=== PATIENT | female | born 1955 | race Caucasian/White ===

== ENCOUNTER 2018-09-26 10:33 | Observation (INO) ==
--- NOTE | 2018-09-26 12:44 | EKG Report ---
Test Performed on : 09/26/2018 10:46:52 AM Test Reason : sob Blood Pressure : / mmHG Vent. Rate : 085 BPM Atrial Rate : 085 BPM P-R Int : 194 ms QRS Dur : 072 ms QT Int : 358 ms P-R-T Axes : 058 -50 045 degrees QTc Int : 426 ms Normal sinus rhythm. Left axis deviation Low voltage QRS Cannot rule out Anterior infarct , age undetermined Abnormal ECG When compared with ECG of 05-MAR-2017 22:27, No significant change was found Unconfirmed Result
[2018-09-26 12:56] LABS: BASO# 0.03 X1000 (0.0-0.2); BASO% 0.3 % (0.0-0.8); EOS# 0.25 X1000 (0.0-0.7); EOS% 2.9 % (0.0-10.0); HEMATOCRIT 35.9 % (37.0-47.0); HEMOGLOBIN 11.7 g/dL (12.0-16.0); IMM GRAN# 0.02 X1000 (0.0-0.04); IMM GRAN% 0.2 % (0.0-0.5); LYMPH# 2.77 X1000 (1.2-3.4); LYMPH% 31.7 % (20.5-51.1); MCH 26.9 PG (27-31); MCHC 32.6 g/dL (33-37); MCV 82.5 FL (81-99); MONO# 0.47 X1000 (0.11-0.59); MONO% 5.4 % (1.7-9.3); MPV 10.6 FL (7.4-10.4); NEUT% 59.5 % (42.2-75.2); PLT 293 X1000 (130-400); RBC 4.35 XMIL (4.2-5.4); RDW 13.9 % (11.5-14.5); WBC 8.74 X1000 (4.8-10.8)
[2018-09-26 13:10] LABS: INR 0.88; PROTIME 12.7 Seconds (11.0-16.0)
[2018-09-26 13:11] LABS: PTT 25.3 Seconds (22.3-41.8)
[2018-09-26 13:14] LABS: AGAP 12; ALB/GLOB RATIO 1.5; ALKALINE PHOSPHATASE 73 U/L (32-104); BUN 19 mg/dL (8-22); CALCIUM 9.3 mg/dL (8.8-10.2); CHLORIDE 100 mmol/L (98-107); COSMO 280; CREATININE 0.9 mg/dL (0.5-0.9); ESTIMATED GFR > 60; GLUCOSE 139 mg/dL (70-104); GOT 10 U/L (10-30); GPT 13 U/L (10-36); POTASSIUM 4.2 mmol/L (3.5-5.1); SODIUM 138 mmol/L (136-145); TCO2 26 mmol/L (25-35); TOTAL BILIRUBIN 0.33 mg/dL (0.20-1.00); TOTAL PROTEIN 6.7 g/dL (6.3-8.3)
--- NOTE | 2018-09-26 13:27 | Diag Imaging Result Doc PS360 ---
EXAM: CT HEAD W/O CONTRAST HISTORY: dizziness TECHNIQUE: CT head without contrast COMPARISON: None. FINDINGS: No parenchymal hemorrhage. No epidural or subdural hematoma. No subarachnoid hemorrhage. No mass identified on this noncontrasted exam. No hydrocephalus. No sinus opacification. IMPRESSION: No hemorrhage. Negative brain CT without contrast. This exam was performed using automated exposure control, adjustment of mA or kV according to patient size, and/or use of iterative reconstruction technique. Electronically signed by Roberto Zhao 09/26/2018 1:25 PM
[2018-09-26 14:05] LABS: ALLEN TEST YES; BE -1.5 mmoll (-3.0-3.0); BLOOD TYPE ARTERIAL; HCO3-(ACT) 23.7 mmoll (20.0-26.0); METHB 0.8 % (0.0-1.5); O2(CT) 15.5 mL/dL (15.0-23.0); O2HB 96.3 % (95.0-99.0); PCO2(98.6) 36 mmHg (35-45); PO2(98.6) 88 mmHg (60-100); SAMPLE BLOOD; SAO2 98.5 % (95.0-100.0); THB 11.4 g/dL (11.5-17.4); pH(98.6) 7.41 (7.35-7.45)
[2018-09-26 14:06] LABS: MODALITY ROOM AIR
[2018-09-26] MEDS ORDERED: ANTIVERT PO ONE (14:59)
--- NOTE | 2018-09-26 15:42 | Diag Imaging Result Doc PS360 ---
EXAM: CHEST-1 VIEW 09/26/2018 HISTORY: sob TECHNIQUE: AP portable at 1532 COMMENT: There is no evidence of acute cardiac or pulmonary disease. Compared to 10/14/2017 there has been no significant change. IMPRESSION: Stable chest. Electronically signed by Lionel Engel 09/26/2018 3:40 PM
--- NOTE | 2018-09-26 15:54 | PROVIDER DOCUMENTATION ---
This chart was entered by Sarah Wellington Scribe, acting as scribe for Andrea Rogers MD. HPI-General Adult - General Chief Complaint: Dizziness Stated Complaint: SOB Time Seen by Provider: 09/26/18 12:25 Source: patient Allergies/Adverse Reactions: Patient Allergies Allergy/AdvReac Type Severity Reaction Status Date / Time No Known Allergies Allergy Verified 08/30/17 16:11 Home Medications: Home Medication List Medication Instructions Recorded Confirmed Last Taken Type ATORVAstatin [Lipitor] 40 mg PO QHS 11/24/16 10/14/17 10/13/17 History Carvedilol 6.25 mg PO BID 03/02/17 10/14/17 10/13/17 History Citalopram [Celexa] 20 mg PO DAILY 03/02/17 10/14/17 10/13/17 History Sitagliptin Phos/Metformin HCl 1 each PO BID 03/02/17 10/14/17 10/13/17 History [Janumet 50-500 mg Tablet] Losartan/Hydrochlorothiazide 1 each PO BID 10/14/17 10/14/17 10/13/17 History [Losartan-Hctz 50-12.5 mg Tab] Oxycodone HCl/Acetaminophen 1 - 2 tab PO Q4H PRN 10/14/17 10/14/17 10/14/17 History [Oxycodone-Acetaminophen 10-325] - History of Present Illness -Gen Adult Nature of Presenting Problems: Patient is a 63 year old female who presents with shortness of breath, dizziness, weakness and blurred vision that has been present for 2 days. Patient does not report chest pain. States she has had a prior heart cath. Reports chronic left shoulder pain. Location of Pain/Injury: reports: none Pain Radiation: reports: no radiation Quality of Pain: reports: none Severity: reports: mild Onset/Duration: reports: 2 days ago Timing: reports: still present Context/Activities at Onset: reports: light activity Associated Symptoms: reports: dizziness, EENT symptoms (blurred vision), shortness of breath, weakness Similar Symptoms Previously?: Yes Recently seen or treated by another doctor?: Yes Review of Systems - Adult - REVIEW OF SYSTEMS - ADULT Constitutional: reports: no symptoms reported. denies: chills, fever, fatique Eyes: reports: see HPI, blurred vision. denies: decreased vision, double vision Ears, Nose, Mouth & Throat: reports: no symptoms reported Cardiovascular: reports: no symptoms reported Respiratory: reports: see HPI, shortness of breath. denies: cough, wheezing Gastrointestinal: reports: no symptoms reported Genitourinary: reports: no symptoms reported Musculoskeletal: reports: see HPI, muscle weakness, other (right shoulder pain). denies: back pain, neck pain Integumentary: reports: no symptoms reported Neurological: reports: see HPI, dizziness/vertigo (dizziness). denies: headache/migraines, seizure, syncope Psychiatric: reports: no symptoms reported Endocrine: reports: no symptoms reported Hematologic/Lymphatic: reports: no symptoms reported Allergic/Immunologic: reports: no symptoms reported All Other Systems: Reviewed and Negative Past History - Adult - PAST MEDICAL HISTORY-ADULT Review of Records: reports: Old Records Reviewed, Nursing Assessment Review, Medications Reviewed, Social history reviewed & non-contributory. Major Childhood Illnesses: reports: denies history Cardiovascular: reports: CAD, HTN, hyperlipidemia Respiratory: reports: asthma Gastrointestinal: reports: denies history Obstetrical/Gynecological: reports: denies history Genitourinary: reports: denies history Musculoskeletal: reports: denies history Neurological: reports: denies history Psychiatric: reports: denies history Endocrine/Immune: reports: Diabetes Other Conditions: reports: denies history - PRIOR SURGERIES/PROCEDURES Surgical/Procedure History: reports: tonsillectomy, orthopedic (extremity) - IMMUNIZATION STATUS Childhood Immunizations: See Nurse Assessment Flu Vaccine: See Nurse Assessment - FAMILY HISTORY Family History: reviewed, not pertinent - SOCIAL HISTORY Smoking: cigarettes (former) Substance Use: denies Physical Exam-General - PHYSICAL EXAM-ADULT Initial Vital Signs Reviewed: Yes - CONSTITUTIONAL General Appearance: alert, no apparent distress. negative: lethargic - HEAD, EARS, NOSE, MOUTH & THROAT HENMT: normocephalic/atraumatic, moist mucous membranes. negative: hearing de ficit - RESPIRATORY Respiratory: chest non-tender, lungs clear, normal breath sounds. negative: crackles, rhonchi - CARDIOVASCULAR Cardiovascular: normal peripheral pulses, regular rate, rhythm. negative: tachycardia, systolic murmur - GASTROINTESTINAL (ABDOMEN) Abdominal Exam: normal bowel sounds, non tender, soft. negative: rebound - MUSCULOSKELETAL Extremity: non-tender, normal inspection. negative: deformity - SKIN Integumentary: normal color, normal turgor, warm/dry. negative: cyanosis, ecc hymosis, jaundice, rash - NEUROLOGIC Neurologic: grossly normal. negative: aphasia, facial droop - PSYCHIATRIC Psych/Mental Status: normal mood/affect, oriented x 3. negative: anxious Progress - PLAN OF CARE/RESULTS Progress/Plan/Lab Results: Vital Signs - 8 hr 09/26/18 10:40 09/26/18 11:32 09/26/18 11:33 Temperature 97.5 F L Pulse Rate 88 94 H 90 Respiratory Rate 20 23 24 Blood Pressure 149/93 162/91 O2 Sat by Pulse Oximetry 99 100 09/26/18 11:40 09/26/18 11:50 09/26/18 12:00 Temperature Pulse Rate 83 85 88 Respiratory Rate 20 18 23 Blood Pressure O2 Sat by Pulse Oximetry 100 100 100 Laboratory Results - last 24 hr 09/26/18 12:26 POC Glucose 134 H Result Diagrams: 09/26/18 11:58 09/26/18 11:58 - EKG 1 Time of EKG reading by physician:: 10:46 EKG Read and Signed by:: Andrea Rogers EKG Interpretation (*Must complete 3 of following elements*): Abnormal Rate: 85 Rhythm: normal sinus rhythm [place]: left QRS: other (low voltage) SD Interval: normal Comments: cannot rule out anterior infarct, age undetermined - XRAY 1 XRAY Study: Chest Impression: See EMR Report (Signed EXAM: CHEST-1 VIEW 09/26/2018 HISTORY: sob TECHNIQUE: AP portable at 1532 COMMENT: There is no evidence of acute cardiac or pulmonary disease. Compared to 10/14/2017 there has been no significant change. IMPRESSION: Stable chest. Electronically signed by Lionel Engel 09/26/2018 3:40 PM 09/26/18 1540 Interpreting Physician: Lionel Engel MD Dictated Date/Time: 09/26/18 1540 cc: Andrea Rogers MD; Garcia Duarte MD) - CT/MRI 1 CT Study: Head Impression: See EMR Report (EXAM: CT HEAD W/O CONTRAST HISTORY: dizziness TECHNIQUE: CT head without contrast COMPARISON: None. FINDINGS: No parenchymal hemorrhage. No epidural or subdural hematoma. No subarachnoid hemor rhage. No mass identified on this noncontrasted exam. No hydrocephalus. No sinus opacification. IMPRESSION: No hemorrhage. Negative brain CT without contrast. This exam was performed using automated exposure control, adjustment of mA or kV according to patient size, and/or use of iterative reconstruction technique. Electronically signed by Roberto Zhao 09/26/2018 1:25 PM 09/26/18 1325 I nterpreting Physician: Roberto Zhao MD Dictated Date/Time: 09/26/18 1323 cc: Andrea Rogers MD; Garcia Duarte MD) - CONSULTS/PCP/HOSPITALIST Notification #1 *Consult/PCP/Hospitalist*: PATI Aguirre for Hospitalist Time Discussed: 15:47 Reason/Comments: Dr. Rogers consulted with Carla about patient Consult Disposition: Will see in ED, Admit Departure - Departure Date of Disposition Decision: 09/26/18 Time of Disposition Decision: 15:47 DIAGNOSIS: SOB (shortness of breath), Vertigo Disposition: ADMITTED INPATIENT 09 Certified Medical Emergency: Emergent Condition: Fair Referrals and Follow-Ups: Garcia Duarte MD [Primary Care Provider] - - Critical Care Note This patient required my direct & personal management of CC.: No Attestation - Physician/ ANASTACIA Attestation Patient care was provided by Advanced Practice Provider:: No The physician spent face to face time with patient:: Yes Advanced Practice Provider documentation review:: Supervising physician onsite and consulted in the evaluation and care of this patient. The physician did have a face to face encounter with the patient. This chart was documented by the indicated scribe, (Sarah Wellington Scribe) and accurately reflects the services I performed and decisions made by me, Andrea Rogers MD, as attested by the provider's signature.
[2018-09-26] MEDS ORDERED: ZOFRAN IV PRN (16:49)
[2018-09-26] MEDS ORDERED: NITROGLYCERIN SL PRN (16:49)
[2018-09-26] MEDS ORDERED: APRESOLINE IV ONE (16:58)
[2018-09-26 17:18] LABS: URINE SOURCE CLEAN CATCH
[2018-09-26 17:29] LABS: BILIRUBIN URINE NEGATIVE (NEGATIVE); BLOOD URINE NEGATIVE (NEGATIVE); COLOR YELLOW; GLUCOSE URINE NEGATIVE (NEGATIVE); KETONE URINE NEGATIVE (NEGATIVE); LEUKOCYTES URINE MODERATE (NEGATIVE); NITRITE URINE NEGATIVE (NEGATIVE); PROTEIN URINE TRACE mg/dL (NEGATIVE); SP GRAVITY URINE 1.019; TURBIDITY URINE HAZY (CLEAR); UROBILINOGEN URINE NORMAL (NORMAL)
[2018-09-26 17:36] LABS: URINE BACTERIA 2+ /HPF; URINE RBC <10 /HPF (<10); URINE WBC 20-40 /HPF (<10)
[2018-09-26] MEDS ORDERED: ASPIRIN PO STA (17:39)
[2018-09-26 17:48] LABS: URINE SMALL ROUND CELLS RENAL PRESENT; URINE YEAST PRESENT
[2018-09-26 18:33] LABS: UR EPITHELIAL CELLS <10 /HPF (<10)
[2018-09-26] MEDS: TYLENOL PO PRN (21:03)
[2018-09-26] MEDS: LIPITOR PO SCH (21:04)
[2018-09-26] MEDS: HUMALOG SUBQ SCH (21:05)
--- NOTE | 2018-09-26 22:54 | HISTORY AND PHYSICAL ---
CHIEF COMPLAINT: Chest pressure, dizziness, shortness of breath. HISTORY OF PRESENT ILLNESS: This is a 63-year-old female who presents to the emergency room complaining of 1 week of dizziness and hypertension, stating that blood pressures have been in the 160 to 210/110 to 112 range during this week. Over the last 48 to 72 hours, she developed increasing shortness of breath and chest pressure feeling like something was sitting on her chest and her shoulders along with generalized weakness, blurred vision and diaphoresis with activity. With rest symptoms would decrease. At first symptoms resolved, but over the last 24 hours, they just decreased in severity prompting her visit to the emergency room for evaluation. She does have a history of CAD. She does have a stent to her LAD. She did have similar symptoms prior to getting her stent. She states she has had a stress test since the stent was placed that was "a good test." She does states she saw a on call pharmacy technician about 4 or 5 years ago after having her [facility] although she has had no further follow up with cardiology. All follow-up was with her primary care physician Dr. Garcia Duarte. PAST MEDICAL HISTORY: 1. CAD status post LAD stent. 2. Hypertension. 3. Diabetes mellitus type 2. 4. Asthma. PRIOR SURGICAL HISTORY: Tonsillectomy, cardiac stent, carpal tunnel, right shoulder surgery and a D C. SOCIAL HISTORY: She denies alcohol, tobacco, or illicit drug use. ALLERGIES: No known drug allergies. HOME MEDICATIONS: A list will be obtained by the nursing staff and once verified, we will review and restart as appropriate. REVIEW OF SYSTEMS: Discussed with patient with pertinent positives stated in the HPI. She denies any chest pain. She denies palpitations, any syncope, a productive cough, any fevers or chills, any night sweats, No PND or orthopnea. No vomiting, diarrhea or constipation, black or bloody vomitus or stools, hematuria, dysuria, frequency, urgency. PHYSICAL EXAMINATION: GENERAL: This is a 63-year-old female who is sitting up in the stretcher in the emergency room in no distress. VITAL SIGNS: Blood pressure is 174/106, heart rate is 80, respirations are 18, temperature is 97.5 degrees with room air saturations 100%. EYES: Pupils equal, round, react to light. EOMs are intact. Sclerae are anicteric. HEENT: Head is normocephalic, atraumatic. Mucous membranes are moist. NECK: Supple with trachea midline. CARDIOVASCULAR: Regular rate and rhythm. S1 and S2 appreciated. She has no lower extremity edema. Calves are nontender bilateral with peripheral pulses palpable x4 extremities. PULMONARY: Breath sounds are clear. No increased work of breathing noted. Chest rises and falls symmetric with respiration. Chest wall is nontender to palpation. GASTROINTESTINAL: Abdomen is soft, nontender, nondistended. Bowel sounds in all 4 quadrants. GENITOURINARY: No CVA. No suprapubic tenderness. NEUROLOGIC: She is alert oriented x3. SKIN: Warm and dry. LABS: WBC is 8.7 with hemoglobin 11.7, hematocrit 35.9, and platelets of 293,000. Sodium 138, potassium 4.2, BUN 19, creatinine 0.9 with a glucose of 139. Troponin is negative. INR 0.88. CT of the head reveals negative brain CT without contrast, no hemorrhage. Chest x-ray reveals stable chest. There is no evidence of acute cardiac or pulmonary disease. EKG reveals sinus rhythm at a rate of 85. ASSESSMENT AND PLAN: 1. Chest pain/pressure. 2. Shortness of breath. 3. Dizziness. 4. History of coronary artery disease status post left anterior descending stent. 5. Hypertension. 6. Diabetes mellitus type 2. 7. Recent left rotator cuff tear. 8. Deep vein thrombosis and gastrointestinal prophylaxis. PLAN: The patient will be admitted to the medical floor at [facility]. telemetry. supplemental oxygen as needed. continue home medicines as appropriate. fingerstick blood sugar with sliding scale insulin. healthy heart diet and then NPO after midnight. echocardiogram. Repeat EKG this afternoon as well as in the morning. continue to trend cardiac enzymes and troponin. Hydralazine IV for blood pressure continue home medications once verified. We will schedule a myocardial perfusion scan for in the morning as well as an EKG. Discussed with Dr Fink. Further treatments pending hospital course Dictated by PATI Davis for Сергей Fink MD cc: PATI Davis MD I agree with most components of history, physical, assessment and plan. A separate addendum has been dictated. A face to face encounter was performed in taking care of this patient. [facility] HOSPITALMoira
[2018-09-26] MEDS: PRILOSEC PO SCH (23:49)
[2018-09-26] MEDS: HYZAAR 50/12.5 MG PO SCH (23:49)
--- NOTE | 2018-09-27 05:37 | HISTORY AND PHYSICAL ---
ADDENDUM: I agree with most components of history, physical, assessment, and plan. In brief, Ms. Oliver is a 63-year-old lady with a past medical history of coronary artery disease, status post LAD stent in 2014, sap-aautbvu-rgkgotizi diabetes mellitus, essential hypertension, who came in with chief complaints of exertional chest pressure in the center of the chest, radiating to the shoulder, associated with shortness of breath of about 1 week's duration. In the emergency room, her EKG and troponins were negative so the hospitalist team was consulted for further management. Apparently, patient had the exact same symptoms 5 years ago when she was diagnosed with coronary artery disease. SUBJECTIVE: The patient denies any cough or runny nose. She has had problems with gastric reflux for which she received 3 months of therapy, which she completed a few weeks ago. Her EGD and colonoscopy in May 2018 were negative. She does not remember the details off it. VITAL SIGNS: Currently, temperature 98.4 degrees, pulse 81, respiratory rate 18, blood pressure 115/87, saturating 100% on room air. PHYSICAL EXAMINATION: General: Obese. Not in any acute distress. Oral cavity is moist. Air entry is bilaterally equal. No wheeze, rhonchi, crackles. Cardiovascular: S1, S2 normal. No murmur, rub, or gallop. Abdomen is soft, nontender. No lower extremity edema. No hepatojugular reflex. Neurologic: She is alert and oriented x3. Sensation and motor intact. LABS: Suggestive of normocytic anemia, normal platelet count, normal coagulation, normal ABG. She does have normal kidney function. Her lactate was elevated on ABG. She denies any urinary symptoms though. MICROBIOLOGY: Urine culture is pending. IMAGING: Head CT on admission, performed because of dizziness, did not have any acute abnormalities. Chest x-ray did not have any acute abnormalities. Head CT was unremarkable. EKG suggestive of normal sinus rhythm, left axis deviation. Her initial troponin was negative. Repeat troponins are pending. ASSESSMENT: 1. Chest pain with prior history of coronary artery disease. Her chest pain does have exertional nature which gets worse on physical exertion and gets slightly better on rest. 2. Essential hypertension. 3. Zjz-zhinuml-gqlobastk diabetes mellitus. 4. Morbid obesity. PLAN: Give patient aspirin 325 mg stat. Continue high-dose statin. Continue her home antihypertensive medication. Follow up with nuclear medicine stress test tomorrow. Other differential includes gastroesophageal reflux disease. Plan of care discussed with the patient. All of her questions have been answered. cc: Сергей Fink MD
[2018-09-27 06:07] LABS: BASO# 0.02 X1000 (0.0-0.2); BASO% 0.2 % (0.0-0.8); EOS# 0.19 X1000 (0.0-0.7); HEMATOCRIT 33.5 % (37.0-47.0); HEMOGLOBIN 11.1 g/dL (12.0-16.0); LYMPH# 3.59 X1000 (1.2-3.4); LYMPH% 38.3 % (20.5-51.1); MCH 26.9 PG (27-31); MCHC 33.1 g/dL (33-37); MCV 81.3 FL (81-99); MONO# 0.44 X1000 (0.11-0.59); MONO% 4.7 % (1.7-9.3); MPV 10.4 FL (7.4-10.4); NEUT# 5.13 X1000 (1.4-6.5); NEUT% 54.8 % (42.2-75.2); PLT 270 X1000 (130-400); RBC 4.12 XMIL (4.2-5.4); RDW 13.6 % (11.5-14.5); WBC 9.37 X1000 (4.8-10.8)
[2018-09-27 06:18] LABS: CALCIUM 9.2 mg/dL (8.8-10.2); CREATININE 1.1 mg/dL (0.5-0.9); POTASSIUM 4.2 mmol/L (3.5-5.1)
[2018-09-27] MEDS: HUMALOG SUBQ SCH ×4 (07:00→21:48)
--- NOTE | 2018-09-27 07:39 | EKG Report ---
Test Performed on : 09/27/2018 07:21:25 AM Test Reason : CP Blood Pressure : / mmHG Vent. Rate : 092 BPM Atrial Rate : 092 BPM P-R Int : 194 ms QRS Dur : 068 ms QT Int : 352 ms P-R-T Axes : 062 -44 033 degrees QTc Int : 435 ms Normal sinus rhythm. Left axis deviation Low voltage QRS Abnormal ECG When compared with ECG of 26-SEP-2018 10:46, (Unconfirmed) Minimal criteria for Anterior infarct are no longer present Confirmed by Braulio Payton MD ([id number]) on 09/30/2018 11:31:48 AM
[2018-09-27] MEDS: PRILOSEC PO SCH (08:11)
[2018-09-27] MEDS ORDERED: LEXISCAN ONE (08:22)
[2018-09-27] MEDS: ASPIRIN PO SCH ×2 (09:53→10:31)
[2018-09-27] MEDS: HYZAAR 50/12.5 MG PO SCH ×2 (09:54→10:31)
[2018-09-27] MEDS: TYLENOL PO PRN (10:31)
[2018-09-27] MEDS: ULTRAM PO PRN ×2 (14:05→21:52)
--- NOTE | 2018-09-27 15:55 | ECHO REPORT ---
ORDER DATE: 09/26/2018 ECHOCARDIOGRAPHIC MEASUREMENTS: 1. Left ventricular internal diameter in diastole 4.1. 2. Aortic root 3.1. SUMMARY: 1. Technically difficult study due to limited acoustic window quality. Intravenous echo contrast agent, Optison, was utilized to enhance endocardial definition. 2. Aortic valve is trileaflet and opens normally on 2-dimensional images. Peak gradient across the aortic valve is less than 10 mmHg. Mitral and tricuspid valves are without evidence of structural abnormality. Pulmonic valve is not well demonstrated. Aortic root is normal in size. 3. Normal left ventricular dimensions suggested. Estimated left ventricular ejection fraction appears to be at least 60%. No regional wall motion abnormality is evident. Left atrium, right atrium, right ventricle are normal in size with grossly preserved right ventricular systolic function. 4. No pericardial effusion. 5. Appearance of inferior vena cava suggests normal central venous pressure. cc: MD Samara Anderson CRNP
[2018-09-27] MEDS ORDERED: PEPCID PO ONE (17:06)
--- NOTE | 2018-09-27 17:58 | PROGRESS NOTE ---
DATE: 09/27/2018 INTERVAL HISTORY: No acute events overnight. She denies any urinary symptoms. Her vitals were unremarkable. Her troponins were negative. EKG had normal sinus rhythm, atelectasis, left axis deviation. The official read of nuclear medicine myocardial perfusion scan is pending. She denies any known kidney disease. She denies any more chest pain. She is complaining of left shoulder pain and she has had rotator cuff injury there and it has been bothering her for many months. VITAL SIGNS: Temperature 98.7 degrees, pulse 92, respiratory rate 16, blood pressure 130/70, saturating 100% on room air. PHYSICAL EXAMINATION: General: Obese, not in any acute distress. HEENT: Oral cavity is moist. No pallor, cyanosis, clubbing, or icterus. Lungs: Air entry bilaterally equal. No wheeze, rhonchi, or crackles. Chest: No chest wall tenderness. There is tenderness on the left shoulder. Cardiovascular: S1, S2 normal. No murmur, rub, or gallop. Abdomen: Soft, nontender. Active bowel sounds. No hepatojugular reflux. Extremities: No lower extremity edema. LABS: Suggestive of normocytic anemia, normal platelet count. She does have a creatinine of 1.1. Her blood sugars have been within mostly acceptable range MICROBIOLOGY: No data. IMAGING: Perfusion CT scans are pending. ASSESSMENT AND PLAN: 1. Chest and diaphoresis with nausea and prior history of LAD stent in 2015 with exertional worsening of symptoms. Follow up echocardiogram, nuclear medicine stress test results. Based on that, I will consider consulting Cardiology to see if she would need coronary angiography. Medical records from [place] have been requested. Her EKG and troponins were negative. 2. Essential hypertension. Currently in acceptable range. Continue home hydrochlorothiazide and losartan. Also, continue her home aspirin and atorvastatin for history of coronary artery disease. 3. Fcv-uagvnfk-ecuytlkyc diabetes mellitus. Follow up with hemoglobin A1c and continue sliding scale insulin. 4. Morbid obesity. Patient has been working on diet and physical activity and she has had a 50 pound weight loss intentionally over last few months. I encouraged her to continue to do that. 5. Rotator cuff injury and left shoulder pain. Continue her on tramadol. 6. Disposition. Awaiting records from [place], as well as possible Cardiology evaluation. Based on that, I will consider discharging her in the next 24 hours or so. Plan of care discussed with the patient. All of her questions have been answered. cc: Сергей Fink MD
--- NOTE | 2018-09-27 19:31 | Diag Imaging Result Document ---
PROCEDURE NAME: MYOCARDIAL PERF SCAN, STR/REST - 09/27/2018 TYPE OF TEST: Lexiscan sestamibi interpretation. SUMMARY: The patient was administered 14.2 mCi of technetium-99m sestamibi, after which resting cardiac images were obtained. The patient was subsequently administered Lexiscan 0.4 mg intravenously after which the heart went from 77 beats per minute to 115 beats per minute. The blood pressure went from 123/74 to 114/67. With Lexiscan, the patient denied chest discomfort. Following the administration of Lexiscan, the patient was administered 43.3 mCi of technetium-99m sestamibi, after which gated stress cardiac images were obtained. Baseline ECG demonstrated normal sinus rhythm, left axis deviation, and delayed precordial R-wave progression. Consider possible left anterior fascicular block. With Lexiscan, there were no diagnostic ST-segment changes. SPECT images were reconstructed in the short, horizontal, vertical and long axis. Review of these images demonstrated a small area of mildly diminished activity in the inferolateral apex on stress images which improves on resting images. Gated images demonstrate a calculated left ventricular ejection fraction of 80% with symmetrical wall motion/thickening. CONCLUSIONS: 1. Adequate response to Lexiscan. 2. Clinically negative for chest pain. 3. Electrocardiographically negative for Lexiscan induced myocardial ischemia. 4. Lexiscan sestamibi images demonstrated a small area of mild reversibility in the inferolateral apex. Cannot exclude a small area of inducible ischemia in the inferolateral apex of questionable significance. Normal left upper systolic function demonstrated. Clinical correlation recommended. cc: MD Samara Anderson CRNP
--- NOTE | 2018-09-27 19:51 | PROGRESS NOTE ---
DATE: 09/27/2018 INTERVAL HISTORY: No acute events. Her chest pain has resolved. She just went to nuclear medicine stress test. However, while lying down on the stretcher, she did experience worsening of her rotator cuff pain on the left shoulder. She wanted me to give her pain medication. She denies any chest discomfort or shortness of breath. I advised her to walk in the hallway and see if her symptoms recur. VITALS: Currently, temperature 98 degrees, pulse 88, respiratory rate 16, blood pressure 134/73. She is saturating 100% on room air. PHYSICAL EXAMINATION: Morbidly obese. Not in any acute distress.Mouth: Oral cavity is moist. Lungs: Air entry bilaterally equal. No wheeze, rhonchi or crackles. Cardiovascular: S1, S2 are normal. No murmur or gallop. Abdomen: Soft, nontender. Extremities: No lower extremity edema. She does not have any chest wall tenderness. She does have shoulder joint tenderness. LABS: Suggestive of normocytic anemia, normal platelet count, normal coagulation. She does have elevation in creatinine to 1.1. Her GFR is 50. Her blood glucoses are within acceptable range. Her hemoglobin A1c is pending. Her troponins were negative. Cholesterol had LDL of 52. IMAGING: Nuclear medicine myocardial perfusion scan report is pending. Echocardiogram is suggestive of ejection fraction of 60% without any regional wall motion abnormality. She had a grossly preserved right ventricular systolic function as well. ASSESSMENT AND PLAN: 1. Exertional chest discomfort with prior history of coronary artery disease requiring stent in left anterior descending. I will continue her home high-dose atorvastatin, aspirin. Follow up with nuclear medicine myocardial perfusion scan imaging. I am also awaiting previous coronary angiography report from [place], which I have already requested. 2. Essential hypertension. Continue home hydrochlorothiazide, losartan, currently in acceptable range. 3. History of [id number] diabetes mellitus. Continue sliding scale insulin. 4. Left rotator cuff pain. I will continue her on tramadol as needed. 5. Prior history of chronic gastroesophageal reflux disease. She is status post 3 months of antacid medication. I will resume her famotidine, presuming that her dyspepsia could also mimic chest discomfort. Plan of care discussed with the patient. All of her questions have been answered. cc: Сергей Fink MD
[2018-09-27] MEDS: LIPITOR PO SCH (21:48)
[2018-09-28] MEDS: ULTRAM PO PRN ×3 (04:52→17:20)
[2018-09-28] MEDS: PRILOSEC PO SCH (06:35)
[2018-09-28] MEDS: HUMALOG SUBQ SCH ×4 (06:53→21:53)
[2018-09-28 07:38] LABS: BASO# 0.02 X1000 (0.0-0.2); BASO% 0.2 % (0.0-0.8); EOS# 0.14 X1000 (0.0-0.7); EOS% 1.6 % (0.0-10.0); HEMATOCRIT 35.1 % (37.0-47.0); HEMOGLOBIN 11.5 g/dL (12.0-16.0); LYMPH# 2.83 X1000 (1.2-3.4); LYMPH% 31.9 % (20.5-51.1); MCH 26.9 PG (27-31); MCHC 32.8 g/dL (33-37); MCV 82.2 FL (81-99); MONO# 0.41 X1000 (0.11-0.59); MONO% 4.6 % (1.7-9.3); MPV 10.6 FL (7.4-10.4); NEUT# 5.46 X1000 (1.4-6.5); NEUT% 61.7 % (42.2-75.2); PLT 264 X1000 (130-400); RBC 4.27 XMIL (4.2-5.4); RDW 13.8 % (11.5-14.5); WBC 8.86 X1000 (4.8-10.8)
[2018-09-28 07:58] LABS: CALCIUM 9.2 mg/dL (8.8-10.2); CREATININE 1.1 mg/dL (0.5-0.9); MAGNESIUM 1.8 mg/dL (1.5-2.7); POTASSIUM 4.4 mmol/L (3.5-5.1)
[2018-09-28] MEDS: ASPIRIN PO SCH (08:31)
[2018-09-28] MEDS: PEPCID PO SCH (08:31)
[2018-09-28] MEDS: HYZAAR 50/12.5 MG PO SCH (08:31)
[2018-09-28] MEDS ORDERED: ANTIVERT PO PRN (11:35)
[2018-09-28] MEDS ORDERED: HEPARIN 1000 UNITS/NS 2,000 UNIT/1,000 ML IV.SOLN ONE (12:56)
[2018-09-28] MEDS ORDERED: NITROGLYCERIN ONE (12:56)
--- NOTE | 2018-09-28 13:14 | CARDIOLOGY CONSULTATION ---
DATE: 09/27/2018 REASON FOR CONSULTATION: Ms. Chastity Oliver comes in with complaints of chest pain shortness of breath. Had a stress test today. HISTORY OF PRESENT ILLNESS: This is a 63-year-old lady who had a stent placement to the left anterior descending artery. Has hypertension and diabetes. Came to the emergency room with increasing episodes of shortness of breath and dizziness for the last 1 week. In addition, she said that she felt a pressure-like sensation as if someone sitting on her chest and upper shoulders, and she has also noticed that when she tries to exert at home in the last few weeks, she has had a heaviness on her shoulders. Today she underwent a stress test which revealed questionable low-grade ischemia in the left ventricular apex; however she just took a shower, and she said that she felt washed out and had some diaphoresis associated with heaviness around her shoulders and neck. She has had shoulder surgery in the past. Her blood pressure was elevated at 160 to 210 over the last week, systolic. Diastolic ranged from 100 to 112. REVIEW OF SYSTEM: A 14-point review of systems done.GI: There is no history of nausea, vomiting, diarrhea. There is no history of hematemesis or melena. Central nervous system: No focal weakness to suggest a CVA or TIA. Genitourinary: There is no dysuria or hematuria. PAST MEDICAL HISTORY: Hypertension, diabetes, asthma, coronary artery disease status post stent placement to the left anterior descending artery. Had a 95% stenosis. This was on 09/13/2014, treated with a drug-eluting stent. Her other past medical history includes tonsillectomy, carpal tunnel, right shoulder surgery. HOME MEDICATIONS: Include Janumet 1 tablet twice a day, atorvastatin 40, dulaglutide, losartan/hydrochlorothiazide 50/12.5. PHYSICAL EXAMINATION: Vital Signs: Blood pressure was 122/70. Neck: Normal jugular venous pressure. There is no thyromegaly. No carotid bruit. Cardiovascular: First and second heart sounds were heard. There is no S3, S4, or gallop. Respiratory: Normal air entry. There is no crepitations or rhonchi. Abdomen: Soft, nontender. There is no guarding or rigidity. Bowel sounds heard. Central nervous system: Alert, and was moving all 4 extremities. Extremities: Revealed no pedal edema. HEENT: Atraumatic, normocephalic. Pupils were equal and reacting to light. ASSESSMENT AND PLAN: Ms. Chastiyt Oliver is a 63-year-old lady with history of hypertension, diabetes, coronary artery disease, stent placement to the left anterior descending artery. She comes in with: 1. Complaints of having elevated blood pressure associated with this chest heaviness which she describes as is someone was sitting on her upper chest with heaviness on both shoulders. She has been having these intermittent episodes for the last 1 week. She was ruled out for myocardial infarction. Cardiolite stress test revealed a low-grade ischemia; however her symptoms are very concerning for unstable angina. Given this, I have recommended that she undergo a left heart catheterization. Risks, benefits, and alternatives were explained. Patient will be set up for left heart catheterization. 2. Hypertension. Recently elevated blood pressure is currently under control. I have not made any changes. 3. Hyperlipidemia. Continue with Lipitor. 4. Diabetes. She is on multiple medications. I have not made any changes. 5. She does not smoke. Does not drink. Thank you for the consult. We will follow hospital course. cc: Michael Fuentes MD
[2018-09-28] MEDS ORDERED: VERSED ONE (13:42)
[2018-09-28] MEDS ORDERED: CLAVE PUMP SET NO FILTER 12260 ONE (13:43)
[2018-09-28] MEDS ORDERED: CLAVE TWINSITE 32 IN 11959 ONE (13:43)
[2018-09-28] MEDS ORDERED: NS 1,000 ML ONE (13:43)
[2018-09-28] MEDS ORDERED: DILAUDID ONE (13:43)
--- NOTE | 2018-09-28 14:56 | CARDIAC CATH REPORT ---
DATE: 09/28/2018 INDICATION: Unstable angina and history of coronary artery disease. PROCEDURES PERFORMED: 1. Left heart catheterization. 2. Selective coronary angiography. PROCEDURE IN DETAIL: Ms. Oliver was brought to the catheterization laboratory in a fasting state. Informed consent was obtained. Prepped in usual fashion. She was anesthetized over the right radial artery after Moris's test proved adequate. A 5-Maori sheath was placed via true Seldinger technique. A radial cocktail was administered, catheters were introduced, and hemodynamic measurements made in the ascending thoracic aorta. Coronary angiography was performed in multiple views using JL3.5 and JR4 diagnostic catheters. Left heart catheterization was performed using the JR4. At the conclusion of the procedure all sheaths and catheters were removed. TR band was left inflated at 11 mL of air. Good capillary refill. Good hemostasis. IV CONTRAST: 50 mL. ESTIMATED BLOOD LOSS: 5-10 mL. FINDINGS: 1. The left main originates from the left coronary cusp and appears normal. 2. The left anterior descending originates from the left main. There is mild in-stent stenosis in the proximal stent with minimal luminal irregularities in the mid and distal vessel. There is a jailed second diagonal that is relatively small and appears to have some ostial disease at around 60%. 3. The circumflex originates from the left main. Proximally the vessel appears normal. The mid vessel has minimal luminal irregularities with normal distal vessel. 4. The right coronary originates from the right coronary cusp. It is a dominant vessel. Minor luminal irregularities are noted diffusely. 5. Aortic blood pressure is 100/62. Left ventricular pressure is 100/2 with an LVEDP of zero. ASSESSMENT: Ms. Oliver is a 63-year-old female with a history of percutaneous coronary intervention previously who presented with symptoms consistent with unstable angina. PLAN: She does not appear to have any severe flow-limiting disease. Her proximal LAD stent is patent with minimal in-stent stenosis. She does have a jailed second diagonal but at this time I would recommend treating this with medical therapy. She will return to the floor for the usual postprocedure convalescence. cc: Alcides Delgado MD
[2018-09-28 15:37] LABS: HEMOGLOBIN A1C 6.3 % (4.8-6.0)
[2018-09-28] MEDS: LIPITOR PO SCH (21:54)
[2018-09-29] MEDS: ULTRAM PO PRN (00:22)
[2018-09-29] MEDS: HUMALOG SUBQ SCH (06:23)
[2018-09-29] MEDS: PRILOSEC PO SCH (06:27)
--- NOTE | 2018-09-29 08:59 | PROGRESS NOTE ---
DATE: 09/28/2018 INTERVAL HISTORY: I am seeing patient late during the day after she had coronary angiography done. The patient was transferred to [facility]. She did not have any other acute events. She is denying any chest pain. Her shoulder pain is better after ice application. She is complaining of dizziness she says today morning when she was taking a shower. After she completed her shower, she started feeling diaphoretic and she was feeling extremely dizzy to an extent that she had to sit down otherwise she would have fallen down. I had ordered some meclizine after which she has been feeling better. She currently denies any chest pain or shortness of breath. VITAL SIGNS: Temperature 97.4 degrees, pulse 76, respiratory rate 16, blood pressure 130/78, saturating 100% on room air. PHYSICAL EXAMINATION: Obese, not in any acute distress. Oral cavity is moist. Air entry bilaterally equal. No wheeze, rhonchi, or crackles. S1, S2 normal. No murmur, rub, or gallop. She does have tenderness over left shoulder because of her rotator cuff injury. LABS: Essentially unremarkable. Her creatinine is stable at 1.1. Her hemoglobin A1c is 6.3. I have not received any documents from [facility] yet. ASSESSMENT AND PLAN: 1. Exertional chest discomfort with prior history of coronary artery disease requiring stent in left anterior descending artery around year 2014. Cardiology was consulted today and patient underwent coronary angiography for reversible ischemia on myocardial perfusion scan test. Coronary angiography suggests she does have close to a 60% stenosis of 1 of the smaller branches of LAD. Otherwise, no other significant coronary artery stenosis and she is just recommended medical management. I will continue her on high-dose atorvastatin, aspirin, losartan and hydrochlorothiazide. She is not listed to be taking any beta mary. 2. Essential hypertension. Continue home hydrochlorothiazide, losartan, currently in acceptable range. 3. History of noninsulin-dependent diabetes mellitus. Continue sliding scale insulin and her home oral hypoglycemic agent at the time of discharge. Continue tramadol for left rotator cuff pain. Start patient on famotidine for her GERD history for which she completed 3 months of antacid course prior to this hospitalization. 4. Dizziness. It is of unclear etiology. I will get orthostatic vitals tomorrow morning. On admission her CT scan head was unremarkable and I will continue her meclizine as needed. DISPOSITION: In the morning time if the patient is able to ambulate in the hallway without any discomfort or dizziness, plan is to discharge her home. Plan of care discussed with the patient. All of her questions have been answered. cc: Сергей Fink MD
[2018-09-29 09:22] VITALS: BP 121/65
[2018-09-29] MEDS: PEPCID PO SCH (09:27)
[2018-09-29] MEDS: ASPIRIN PO SCH (09:27)
[2018-09-29] MEDS: HYZAAR 50/12.5 MG PO SCH (09:27)
--- NOTE | 2018-09-30 10:20 | DISCHARGE SUMMARY ---
ADMISSION DATE: 09/26/2018 DISCHARGE DATE: 09/29/2018 CONSULTATIONS: Dr. Fuentes of Cardiology. PERTINENT PROCEDURES: 1. Head CT negative. 2. Echocardiogram 60% with no wall motion abnormality. 3. Perfusion scan was negative for ischemia. There was a small area of mild reversibility in the inferolateral apex. Cannot exclude a small area of inducible ischemia in the inferolateral apex of questionable significance. 4. Left heart catheterization did not appear to have any severe flow-limiting disease. Proximal LAD stent is patent with minimal in-stent stenosis. There is a jailed second diagonal. The recommendation is to continue with medical therapy. ASSESSMENT AND PLAN: 1. Exertional chest discomfort with history of coronary artery disease, requiring stent to the left anterior descending in 2014. The patient underwent an echocardiogram, negative Lexiscan with probable inducible small area of ischemia that was followed up with a heart catheterization. There was no significant coronary artery stenosis. Recommended further medical management, high-dose statin, aspirin, losartan, and hydrochlorothiazide. 2. Essential hypertension. Continue home medications. 3. Noninsulin-dependent diabetes mellitus. Continue home regimen, diabetic diet. 4. Dizziness of unclear etiology. She was initiated on meclizine as needed. HOSPITAL COURSE: Briefly, Ms. Oliver is a 63-year-old female with a past medical history of coronary artery disease, status post LAD stent in 2014, noninsulin- dependent diabetes mellitus, essential hypertension, who came to the ED with exertional chest pressure in the center of the chest, radiating to the shoulder, associated with shortness of breath of 1-week duration. In the ED, EKG and troponins were negative. These were similar to her symptoms 5 years ago when she received a stent. She was admitted to the Hospitalist Service, consulted Cardiology, underwent an echocardiogram and a normal stress test, but could not rule out a small area of reproducible ischemia, so she underwent a left heart catheterization that did not show any significant stenosis, and recommended continue medical management. She has been chest pain-free, and will be discharged home today. VITAL SIGNS: At the time of discharge, temperature is 98.1 degrees, heart rate 88, respirations 18, blood pressure 137/68, O2 is 99% on room air. Orthostatics: Heart rate 93, blood pressure 119/69 standing; supine 100 and 101/62; supine heart rate was 94, blood pressure was 121/65. DISCHARGE DIET: Diabetic. DISCHARGE MEDICATIONS: 1. Lipitor 40 mg p.o. at bedtime. 2. Janumet 50/500 mg tablet 2 each p.o. b.i.d. 3. Losartan/hydrochlorothiazide 50/12.5 mg 2 each p.o. b.i.d. 4. Trulicity 1.5 mg subcutaneously as directed. 5. Antivert 25 mg p.o. t.i.d. p.r.n. 6. Prilosec 40 mg p.o. daily. FOLLOWUP: Ms. Oliver is being discharged back home with self-care. She is to follow up with her primary real estate operations manager, Dr. Mora, in 1 month, as well as her primary care provider in 2 to 3 weeks, Dr. Garcia Duarte. She is to take all medications as prescribed. She can return to the ED or call 911 for any worsening of symptoms. Dictated by PATI Curtis for Christiano Melgoza MD Addendum: Patient seen and examined by myself. Agree with PATI note. It reflects my assessment and plan. Patient is being discharged in stable condition. Follow up with PCP in a week. cc: MD Marcio House MD Micah A. Howard, MD MTDD
== END 2018-09-29 11:10 | disposition home or self-care (01) ==
LOC: ED 10:33 → 4N 10:33 → SUATTDRO 10:34 → 3S 09-28 15:50
PROVIDERS: ATTEND Internal Medicine
CPT/HCPCS: 70450; 71010; 71045; 78452; 80048; 80053; 80061; 81001; 82550; 82805; 82948; 83036; 83721; 83735; 84484; 85025; 85610; 85730; 87088; 93005; 93010; 93017; 93306; 93458; 94761; A9270; A9500; C8929; J0360; J1170; J1644; J1815; J2250; J2785; J7030; Q9957; Q9967; XXXXX